=== PATIENT | female | born 1975 | race Caucasian/White ===

== ENCOUNTER 2018-11-01 06:13 | Day surgery (SDC) | payer BC, OTHER ==
[~2018-11-01 06:13] MED LIST: Buffered Lidocaine 1% SYRIN* 1 ML/SYRINGE INTRADERM ONE; Lactated Ringers 1000 ML Bag* 1,000 ML IV SCH
[2018-11-01] MEDS ORDERED: Bupivacaine 0.25% W/EPI* 10 ML SDV ONE (06:47)
[2018-11-01] MEDS ORDERED: ceFAZolin 2 GM PREMIX in ORs 2 GM/50 ML BAG IVPB ONE (06:50)
[2018-11-01] MEDS ORDERED: Lidocaine 2% PF * 5 ML VIAL ONE (07:32)
[2018-11-01] MEDS ORDERED: Midazolam* 1 MG/ML 2 ML VIAL (2 MG) ONE (07:32)
[2018-11-01] MEDS ORDERED: Rocuronium* 10 MG/ML VIAL ONE (07:32)
[2018-11-01] MEDS ORDERED: Propofol* 10 MG/ML 20 ML BTL ONE (07:32)
[2018-11-01] MEDS ORDERED: fentaNYL* 50 MCG/ML 2 ML VIAL (100 MCG VIAL) ONE ×2 (07:33→10:08)
[2018-11-01] MEDS ORDERED: Dexamethasone IV* 4 MG/ML 1 ML (4 MG) ONE (08:33)
[2018-11-01] MEDS ORDERED: Ketorolac INJ* 30 MG/ML 1 ML VIAL ONE (08:33)
[2018-11-01] MEDS ORDERED: Metoclopramide IV* 5 MG/ML 2 ML VIAL ONE (08:33)
[2018-11-01] MEDS ORDERED: Ondansetron INJ* 2 MG/ML VIAL ONE (08:33)
[2018-11-01] MEDS ORDERED: Bupivacaine 0.5% W/EPI SDV* 30 ML VIAL ONE (08:49)
[2018-11-01] MEDS ORDERED: Lidocaine 1% INJ* 10 MG/ML 30 ML SDV ONE (08:49)
[2018-11-01] MEDS ORDERED: Sugammadex * 200 MG/2 ML VIAL IV PUSH ONE (09:14)
--- NOTE | 2018-11-01 09:30 | OP ---
Operative Report - Blank - Operative Report Date of Operation: 11/01/18 Note: Brief Operative Note Preop Dx: symptomatic cholelithiasis Postop Dx: same Procedure: laparoscopic cholecystectomy Anesthesia: GET Surgeon: [employer] Test Technician: THALIA Donis Fluids: 700 ml RL EBL: 40 ml Specimen: gallbladder Drains: none Findings: dictated
[2018-11-01] MEDS ORDERED: Naloxone* 0.4 MG/ML 1 ML VIAL IV PRN (10:04)
[2018-11-01] MEDS ORDERED: DiMENhydriNATE IV* 50 MG/ML VIAL IV PUSH PRN (10:04)
[2018-11-01] MEDS ORDERED: oxyCODONE TAB* 5 MG TAB PO PRN (10:04)
[2018-11-01] MEDS ORDERED: Acetaminophen TAB* 325 MG PO PRN (10:04)
[2018-11-01] MEDS ORDERED: fentaNYL* 50 MCG/ML 2 ML VIAL (100 MCG VIAL) IV PRN (10:04)
[2018-11-01] MEDS ORDERED: oxyCODONE TAB* 5 MG TAB ONE (10:08)
[2018-11-01] MEDS ORDERED: Acetaminophen TAB* 325 MG ONE (10:08)
[2018-11-01] MEDS ORDERED: DiMENhydriNATE IV* 50 MG/ML VIAL ONE (10:08)
[2018-11-01 12:02] VITALS: BP 109/63
--- NOTE | 2018-11-01 20:38 | OP ---
: [facility]; Christine Call NP * DATE OF OPERATION: 11/01/18 - [facility] DATE OF : 75 SURGEON: Mark Tovar MD ELECTRICAL MAINTENANCE ENGINEER: THALIA Means ANESTHESIOLOGIST: Devorah Mallory DO ANESTHESIA: General endotracheal. PRE-OP DIAGNOSIS: Symptomatic gallstones. POST-OP DIAGNOSIS: Symptomatic gallstones. OPERATIVE PROCEDURE: Laparoscopic cholecystectomy. ESTIMATED BLOOD LOSS: Minimal. IV FLUIDS: Crystalloid. SPECIMENS: Gallbladder. DRAINS: None. COMPLICATIONS: None. COUNTS: The instruments, needle and sponge counts were correct. DESCRIPTION OF PROCEDURE: The patient was brought to the operating room and placed on the table supine. Sequential compression devices were placed on both lower extremities and general anesthesia was administered. The abdomen was prepped and draped in the usual sterile fashion. Appropriate intravenous antibiotics were administered. A time-out was performed. Local anesthetic was infiltrated into the skin and soft tissue prior to making each incision. Entry to the abdomen was through an infraumbilical vertical incision using an open technique. After accessing the peritoneal cavity with a 5 mm optical trocar, carbon dioxide was insufflated to a pressure of 15 mmHg. Under direct visualization, the 5 mm trocar was placed in the right upper quadrant and in the subxiphoid position. Initial trocar was exchanged for a 12 mm trocar at the umbilical site and the final trocar was 5 mm trocar in the right upper quadrant. Gallbladder was identified. It did have adhesions of omentum to it with no evidence of acute inflammation. Gallbladder and fundus was grasped and retracted cephalad and the omental adhesions were taken down using a combination of blunt and sharp dissection with the use of cautery. The infundibulum of the gallbladder was identified, the peritoneum investing the gallbladder was incised and peeled away using combination of cautery, sharp and blunt dissection. With medial and lateral dissection of the cystic duct, this was dissected out bluntly as was the cystic artery. After obtaining critical view, the two structures were each doubly clipped and divided. Additionally, a posterior branch of the cystic artery was clipped as well. The gall-bladder was grasped at the cystic duct stump and retracted cephalad. The gallbladder was freed from the attachments to the liver, staying in the avascular plane and using a combination of sharp and blunt dissection and cautery dissection. The gallbladder was placed into a retrieval bag and retrieved from the umbilical wound. Inspection of the area of dissection revealed clips to be intact. Hemostasis was excellent. The ports were removed under direct visualization and carbon dioxide was released. The infraumbilical wound was closed using 0- Vicryl to approximate the fascia. Skin incisions were all closed with 4-0 Monocryl in a subcuticular fashion. Steri-Strips were applied. The patient tolerated the procedure well, she was extubated and transferred to recovery room in stable condition. [id number]/[facility] #: [id number] [facility]
== END 2018-11-01 12:04 | disposition home or self-care (01) ==
LOC: OR 06:13
PROVIDERS: ATTEND Surgery
DX: K80.10 Calculus of gallbladder with chronic cholecystitis without obstruction (principal); E03.9 Hypothyroidism, unspecified; Z87.891 Personal history of nicotine dependence; Z98.84 Bariatric surgery status; E66.9 Obesity, unspecified
CPT/HCPCS: 47562; 81025; 88304; A9270-GY; J0690; J1100; J1240; J1885; J2250; J2405; J2704; J2765; J3010

== ENCOUNTER 2019-09-01 12:12 | Day surgery (SDC) | payer OTHER, BC ==
[~2019-09-01 12:12] MED LIST changes: +Famotidine IV* 10 MG/ML 2 ML (20 mg) IV ONE
[2019-09-01] MEDS ORDERED: Famotidine IV* 10 MG/ML 2 ML (20 mg) ONE (13:02)
[2019-09-01] MEDS ORDERED: Dexamethasone IV* 4 MG/ML 1 ML (4 MG) ONE (13:27)
[2019-09-01] MEDS ORDERED: Ketorolac INJ* 30 MG/ML 1 ML VIAL ONE (13:27)
[2019-09-01] MEDS ORDERED: Midazolam* 1 MG/ML 5 ML VIAL (5 MG) ONE (13:27)
[2019-09-01] MEDS ORDERED: Ondansetron INJ* 2 MG/ML VIAL ONE ×2 (13:27→16:26)
[2019-09-01] MEDS ORDERED: Propofol* 10 MG/ML 20 ML BTL ONE (13:27)
[2019-09-01] MEDS ORDERED: fentaNYL* 50 MCG/ML 2 ML VIAL (100 MCG VIAL) ONE (13:27)
[2019-09-01] MEDS ORDERED: Lidocaine 2% PF * 5 ML VIAL ONE (13:27)
[2019-09-01 14:02] LABS: ABS Eosinophils 0.1 10^3/ul (0-0.6); ABS Lymphocytes 1.9 10^3/ul (1.0-4.8); ABS Monocytes 0.6 10^3/ul (0-0.8); ABS Neutrophils 3.2 10^3/ul (1.5-7.7); Eosinophil % 1.2 %; Hematocrit 40 % (35-47); Hemoglobin 13.5 g/dL (12.0-16.0); Lymphocyte % 32.5 %; Mean Corpuscular HGB Conc 34 g/dL (31-36); Mean Corpuscular Hemoglobin 32 pg (27-31); Mean Corpuscular Volume 93 fL (80-97); Mean Platelet Volume 8.3 fL (7.4-10.4); Nucleated Red Blood Cells % 0.2; Platelet Count 259 10^3/uL (150-450); Red Blood Count 4.29 10^6 /uL (3.70-4.87); Red Cell Distribution Width 19 % (10-15); White Blood Count 5.8 10^3/uL (3.5-10.8)
[2019-09-01] MEDS ORDERED: Ondansetron INJ* 2 MG/ML VIAL IV PRN (14:24)
[2019-09-01] MEDS ORDERED: Naloxone* 0.4 MG/ML 1 ML VIAL IV PRN (14:24)
[2019-09-01] MEDS ORDERED: fentaNYL* 50 MCG/ML 2 ML VIAL (100 MCG VIAL) IV PRN (14:24)
[2019-09-01] MEDS ORDERED: EPHEDrine (Pressors)* 50 MG/ML VIAL ONE (15:03)
[2019-09-01] MEDS ORDERED: Lidocaine 1% INJ* 10 MG/ML 30 ML SDV ONE (16:02)
[2019-09-01] MEDS ORDERED: Acetaminophen IV 1GM/100ML * 100 ML ONE (16:43)
[2019-09-01] MEDS ORDERED: oxyCODONE/Acetamin 5/325 MG* TAB PO PRN (17:02)
[2019-09-01 18:19] VITALS: BP 108/69
--- NOTE | 2019-09-02 03:30 | OP ---
CC: [facility]* OPERATIVE REPORT: DATE OF OPERATION: 09/01/19 - [facility] DATE OF : 75 SURGEON: Brie Robbins MD ANESTHESIOLOGIST: Dr. Carrion. ANESTHESIA: General endotracheal. PRE-OP DIAGNOSES: Menorrhagia and dysmenorrhea. POST-OP DIAGNOSES: Menorrhagia and dysmenorrhea, left vulvar lesion. PROCEDURE: Dilation hysteroscopy, MyoSure myomectomy, and curettage and excision of vulvar lesion. ESTIMATED BLOOD LOSS: Minimal, less than 20 cc. SPECIMEN: Endometrial curettings including portions of fibroid and vulvar lesion. DRAINS: None. DEFICIT: 1500 mL. There was a large amount of fluid in the drapes on the floor due to the fibroid location in the lower segment and protruding into the cervix, which caused a large amount of fluid to continuously be spraying out throughout the surgery, so the 1500 cc does not seem to be an accurate deficit. Serum sodium was checked in the recovery room and was 134. The left vulvar lesion is approximately 7 mm, raised, round, and pink in the middle of the left labia majora. COMPLICATIONS: None. COUNTS: Sponge, lap, and needle count were correct x2 and the patient was brought to recovery room, awake, and in stable condition. DESCRIPTION OF PROCEDURE: The patient was brought to the operating room. When general anesthesia was found to be adequate, the patient was prepped and draped in the usual sterile fashion in the dorsal lithotomy position. Time-out was performed. Exam under anesthesia was performed. The weighted speculum was placed in the vagina. The anterior lip of the cervix was grasped with a single- tooth tenaculum and the cervix was gently dilated using the graduated Nicholson dilators. The MyoSure was introduced and a large, what appeared to be fibroid, was noted to be filling a portion of the lower uterine segment and protruding into the cervix. The MyoSure was used to remove as much of the fibroid as possible. The tissue appeared white and felt firm consistent with a fibroid. Special attention was paid to the fluid deficit. When the deficit reached 1500 , the myomectomy was aborted although approximately half of the fibroid remained. The curettage was performed and specimen was sent to Pathology. Single-tooth tenaculum was removed from the cervix. Excellent hemostasis was noted. Attention was then turned to the left vulvar lesion. Lidocaine was instilled. The lesion was excised in its entirety using the scalpel, and 2 interrupted sutures of 4-0 Vicryl were placed with excellent hemostasis and congregational of the anatomy. The patient was brought to recovery room awake and in stable condition. Serum sodium level was checked and was 134. [id number]/[facility] #: [id number] [facility] [facility]
== END 2019-09-01 17:56 | disposition home or self-care (01) ==
LOC: OR 12:12
PROVIDERS: ATTEND Obstetrics & Gynecology
DX: D07.1 Carcinoma in situ of vulva (principal); N84.0 Polyp of corpus uteri; D25.0 Submucous leiomyoma of uterus; N92.0 Excessive and frequent menstruation with regular cycle; K50.90 Crohn's disease, unspecified, without complications; K90.0 Celiac disease; E06.3 Autoimmune thyroiditis; E03.9 Hypothyroidism, unspecified; Z98.84 Bariatric surgery status; Z90.49 Acquired absence of other specified parts of digestive tract
CPT/HCPCS: 36415; 84300; 85025; 88305; J1100; J1885; J2250; J2405; J2704; J3010